=== PATIENT | female | born 1975 | race Caucasian/White ===

== ENCOUNTER 2016-07-16 12:22 | Emergency (ER) | payer MEDICAID, OTHER ==
[~2016-07-16] VITALS: Ht 149.9 cm; Wt 66.0 kg
[2016-07-16 12:23] VITALS: BP 137/75; PULSE 86; RESP 20; TEMP 98.5; O2SAT 99
--- NOTE | 2016-07-16 13:21 | PD ---
HPI Chief Complaint: Injury Time Seen by Provider: 13:03 Travel History International Travel<30 days: No Contact w/Intl Traveler<30days: No Traveled to known affect area: No History of Present Illness HPI 41-year-old female complains of left hand left wrist pain and swelling. Patient states that she fell a month ago and was seen at [facility]. Patient states that her left wrist was splinted and she was advised to follow up with an orthopedist. Patient states that she has increasing pain and swelling of the left wrist and she took the splint off and brought herself another splint [id number]. Patient states that she had persistent pain and swelling to left wrist and left hand since then. Patient is unable to follow-up with a local orthopedist. On a scale of 1-10 the pain is an 8. PFSH Past Medical History Hx Anticoagulant Therapy: No Cardiovascular Problems: No Chemotherapy: No Cerebrovascular Accident: No Diabetes: No Respiratory: No ?: Unknown Past Surgical History Hysterectomy: No Social History Alcohol Use: No Tobacco Use: Yes Substance Use: No Allergies-Medications (Allergen,Severity, Reaction): Coded Allergies: Ibuprofen (Verified Allergy, Severe, 07/16/16) Acetaminophen (Verified Allergy, Unknown, 07/16/16) Penicillin (Verified Allergy, Unknown, 07/16/16) Reported Meds & Prescriptions Reported Meds & Active Scripts Active Ultram (Tramadol HCl) 50 Mg Tab 50 Mg PO Q6H PRN Review of Systems General / Constitutional: No: Fever Eyes: No: Visual changes HENT: No: Headaches Cardiovascular: No: Chest Pain or Discomfort Respiratory: No: Shortness of Breath Gastrointestinal: No: Abdominal Pain Genitourinary: No: Dysuria Musculoskeletal: Positive: Pain Skin: No Rash Neurologic: No: Weakness Psychiatric: No: Depression Endocrine: No: Polydipsia Hematologic/Lymphatic: No: Easy Bruising Physical Exam Narrative GENERAL: Well-nourished, well-developed patient. SKIN: Focused skin assessment warm/dry. HEAD: Normocephalic. EYES: No scleral icterus. No injection or drainage. NECK: Supple, trachea midline. No JVD or lymphadenopathy. CARDIOVASCULAR: Regular rate and rhythm without murmurs, gallops, or rubs. RESPIRATORY: Breath sounds equal bilaterally. No accessory muscle use. GASTROINTESTINAL: Abdomen soft, non-tender, nondistended. MUSCULOSKELETAL: No cyanosis, or edema. BACK: Nontender without obvious deformity. No CVA tenderness. Patient has ecchymosis with tenderness diffuse over the left wrist and dorsal aspect the left hand. Limited range of motion all fingers secondary to pain. Good capillary refill. Data Data Last Documented VS Vital Signs Date Time Temp Pulse Resp B/P Pulse Ox O2 Delivery O2 Flow Rate FiO2 07/16/16 14:31 97 07/16/16 13:07 Room Air 07/16/16 12:23 98.5 86 20 137/75 Orders Hand, Complete ([id number]) (07/16/16 13:09) Wrist, Complete ([id number]) (07/16/16 13:09) Tramadol (Ultram) (07/16/16 13:30) Warming [place] / Warming Syst PRN (07/16/16 13:43) Splint Or Brace Apply/Monitor (07/16/16 13:58) MDM Medical Decision Making Medical Screen Exam Complete: Yes Emergency Medical Condition: Yes Interpretation(s) X-ray of left hand left wrist shows fracture distal radius and ulna styloid. Differential Diagnosis Differential diagnosis including fracture, dislocation. Narrative Course 41-year-old female with left wrist injury a month ago. Patient's unable to find an orthopedist for follow-up. Diagnosis Primary Impression: Fracture of radius, distal, left, closed Qualified Code: S52.532A - Closed Colles' fracture of left radius, initial encounter Referrals: Damien Cedillo MD Patient Instructions: General Instructions Med/Other Pt SpecificInfo: Prescription(s) given Scripts Tramadol (Ultram)50 Mg Tab50 Mg PO Q6H PRN (PAIN) #30 TAB Prov:Hector Mendoza MD 07/16/16 Disposition: 01 DISCHARGE HOME Condition: Stable Hector Mendoza MD Jul 16, 2016 13:21
[2016-07-16] MEDS ORDERED: traMADol HCL 50 MG TAB PO ONE (13:30)
--- NOTE | 2016-07-16 14:00 | RADRPT ---
EXAM DATE/TIME: 07/16/2016 13:37 [facility] COMPARISON: No previous studies available for comparison. EXTERNAL COMPARISON : [facility] INDICATIONS : Left wrist pain for 5 days. Patient has known left wrist fracture. MEDICAL HISTORY : Left wrist fracture SURGICAL HISTORY : None. ENCOUNTER: Initial ACUITY: 4 - 6 days PAIN SCORE: 10/10 LOCATION: Left entire wrist FINDINGS: 3 views of the left wrist demonstrate an impaction fracture of the distal radius and a nondisplaced f racture of the ulnar styloid. There is mild dorsal angulation of the distal radius. The remainder of the osseous structures appear intact. The bones are normal mineralization. Adjacent soft tissues demo nstrate edema. CONCLUSION: Impacted and slightly dorsally angulated distal radial fracture. No evidence of articular extension. Nondisplaced fracture involving the ulnar styloid. Manisha Casillas MD on July 16, 2016 at 13:57 Board Certified Radiologist. This report was verified electronically.
[2016-07-16] MEDS ORDERED: ULTR50TA5 PO (14:05)
--- NOTE | 2016-07-16 14:30 | RADRPT ---
EXAM DATE/TIME: 07/16/2016 13:37 [facility] COMPARISON: No previous studies available for comparison. INDICATIONS : Left hand pain with occasional numbness for 5 days. Patient has known left wrist fracture. MEDICAL HISTORY : Previous left wrist fracture SURGICAL HISTORY : None. ENCOUNTER: Initial ACUITY: 4 - 6 days PAIN SCORE: 10/10 LOCATION: Left entire hand FINDINGS: 3 views of left hand demonstrate a compression fracture involving the distal radius with dorsal angul ation. Nondisplaced fracture of the ulnar styloid. The remainder the osseous structures are intact wi th normal alignment. The bones are normal mineralization. Adjacent soft tissues demonstrate edema but are otherwise unremarkable. CONCLUSION: Fracture of the distal left radius with mild dorsal angulation. Nondisplaced fracture involving the u lnar styloid. Manisha Casillas MD on July 16, 2016 at 14:28 Board Certified Radiologist. This report was verified electronically.
== END 2016-07-16 14:45 | disposition home or self-care (01) ==
LOC: NEPC 12:22
DX: S52.502A Unspecified fracture of the lower end of left radius, initial encounter for closed fracture (principal); S52.612A Displaced fracture of left ulna styloid process, initial encounter for closed fracture; Z72.0 Tobacco use; X58.XXXA Exposure to other specified factors, initial encounter; Y93.9 Activity, unspecified; Y92.9 Unspecified place or not applicable; Y99.8 Other external cause status
CPT/HCPCS: 29125; 73110; 73130